=== PATIENT | male | born 1950 | race Two or more races ===

== ENCOUNTER 2018-10-23 10:01 | Outpatient (CLI) | payer OTHER | END 2018-10-23 10:05 | disposition home or self-care (01) | LOC: RAD 501 10:01 | DX: M25.531 Pain in right wrist (principal) ==

== ENCOUNTER 2022-07-21 08:28 | Outpatient (CLI) | payer OTHER | END 2022-07-21 08:31 | disposition home or self-care (01) | LOC: RAD 08:28 | DX: Z87.09 Personal history of other diseases of the respiratory system (principal) ==

== ENCOUNTER 2024-08-11 09:27 | Outpatient (CLI) | payer OTHER ==
[~2024-08-11 09:27] MED LIST: MEDROLPACK PO; NORFLEX100MG PO
== END 2024-08-11 10:00 | disposition home or self-care (01) ==
LOC: RAD 09:27
PROVIDERS: ATTEND Physical Medicine & Rehabilitation
DX: M25.552 Pain in left hip (principal)